=== PATIENT | female | born 1965 | race Caucasian/White ===

== ENCOUNTER 2024-01-15 18:17 | Emergency (ER) | payer OTHER ==
[2024-01-15 18:24] VITALS: TEMP 98.4; BMI 32.9
[2024-01-15] MEDS ORDERED: FAMOTIDINE 20 MG/50 ML IVPB 20 MG/50 ML MG IVPB ONE (19:48)
[2024-01-15] MEDS ORDERED: MAG HYDROX/AL HYDROX/SIMETH 30 ML UNIT-DOSE CUP ONE (19:48)
[2024-01-15] MEDS: FAMOTIDINE 20 MG/50 ML IVPB 20 MG/50 ML MG IVPB ONE (20:06)
[2024-01-15] MEDS: MAG HYDROX/AL HYDROX/SIMETH 30 ML UNIT-DOSE CUP PO ONE (20:06)
[2024-01-15 20:23] LABS: BASO % 0.3 % (0-2.0); EOS % 0.8 % (0-4.5); HEMOGLOBIN 14.8 GM/dL (10.7-15.3); LYMPH % 33.8 % (8-40); MCHC 34.5 g/dl (32.0-36.0); MEAN CELL VOLUME 89.7 fl (80-96); MEAN PLT VOLUME 8.4 fl (7.5-11.1); MONO % 6.8 % (3.8-10.2); NEUT % 58.3 % (42.8-82.8); PLATELET COUNT 256 10^3/uL (134-434); RBC 4.79 M/mm3 (3.60-5.2); RDW 13.1 % (11.6-15.6); WHITE BLOOD COUNT 5.6 K/mm3 (4.0-10.0)
[2024-01-15 20:28] LABS: POTASSIUM 3.8 mmol/L (3.5-5.1)
[2024-01-15 20:30] LABS: CALCIUM 9.7 mg/dL (8.5-10.1)
[2024-01-15 20:31] LABS: ALBUMIN 4.2 g/dl (3.4-5.0); BLOOD UREA NITROGEN 16.9 mg/dL (7-18)
[2024-01-15 20:36] LABS: BILIRUBIN,TOTAL 0.8 mg/dL (0.2-1); TOT PROT 7.1 g/dl (6.4-8.2)
[2024-01-15] MEDS ORDERED: ACETAMINOPHEN INJECTION 100 ML IVPB ONE (21:25)
[2024-01-15] MEDS: ACETAMINOPHEN 1000 MG/100 ML BAG IVPB ONE (21:30)
[2024-01-15 21:44] VITALS: BP 162/67; PULSE 58; RESP 20
== END 2024-01-15 22:04 | disposition home or self-care (01) ==
LOC: JER 18:17
PROC: 3E033GC Introduction of Other Therapeutic Substance into Peripheral Vein, Percutaneous Approach (ICD-10-PCS; principal; 2024-01-15)
PROC: 3E033NZ Introduction of Analgesics, Hypnotics, Sedatives into Peripheral Vein, Percutaneous Approach (ICD-10-PCS; 2024-01-15)
DX: R10.13 Epigastric pain (principal); R07.89 Other chest pain
CPT/HCPCS: 36415; 71046-TC-FY; 80053; 82550; 84484; 85025; 93005; 93010; 99285-25; J0131